=== PATIENT | male | born 1940 | race Caucasian/White ===

== ENCOUNTER 2022-08-08 10:57 | Inpatient (IN) | payer MEDICARE ==
[2022-08-08] MEDS ORDERED: methylPREDNISolone SOD SUCCI 125 MG/2 ML VIAL IV STA (11:11)
[2022-08-08] MEDS ORDERED: IPRATROPIUM-ALBUTEROL 3 ML NEB INHALATION STA (11:11)
--- NOTE | 2022-08-08 11:15 | ED ---
SOB HPI - General Chief Complaint: Shortness of Breath Stated Complaint: URI Time Seen by Provider: 08/08/22 11:05 Source: patient, family, RN notes reviewed Mode of arrival: ambulatory Limitations: no limitations - History of Present Illness Initial Comments: This is an 82-year-old male who presents to the emergency department for a cough and difficulty breathing. States that for approximately 16 days, he has been experiencing a productive cough. He is unable to lay flat at night due to this cough. Also reports associated shortness of breath. Denies any chest pain. He has no cardiac or pulmonary issues. Patient is not a current smoker and quit approximately 20 years ago. He does have an abdominal aortic aneurysm that he has been told is small and not at the point of requiring repair. Denies any sick contacts. Denies any fevers, chills, sore throat, chest pain, palpitations, abdominal pain, nausea, vomiting, diarrhea, back pain, or headaches. MD Complaint: shortness of breath, cough Onset/Timin -: days(s) Worsens With: lying flat Associated Symptoms: sputum production Treatments Prior to Arrival: none - Related Data Home Oxygen Therapy: No Home Medications Medication Instructions Recorded Confirmed Atorvastatin Calcium 40 mg PO DAILY 08/08/22 08/08/22 Cyanocobalamin (Vitamin B-12) 1,000 mcg PO DAILY 08/08/22 08/08/22 [Vitamin B-12] Esomeprazole Magnesium [NexIUM 20 mg PO DAILY 08/08/22 08/08/22 24Hr] Glucosamine/Chondr Ho A Sod [Osteo 2 tab PO DAILY 08/08/22 08/08/22 Bi-Flex Caplet] Metoprolol Tartrate [Lopressor] 50 mg PO BID 08/08/22 08/08/22 Homer-3/Dha/Epa/Fish Oil [Fish Oil 1 cap PO DAILY 08/08/22 08/08/22 1,000 mg Softgel] Pseudoephedrine/Chlorpheniramie 1 tab PO Q4-6H PRN MDD 4 TABLETS 08/08/22 08/08/22 60mg/4mg Triamterene/Hydrochlorothiazid 1 cap PO DAILY 08/08/22 08/08/22 [Triamterene-Hctz 37.5-25 mg Cp] guaiFENesin-DM 600/30MG [Mucinex 1 tab PO Q12HR PRN 08/08/22 08/08/22 Dm] lisinopriL 40 mg PO DAILY 08/08/22 08/08/22 Allergies Allergy/AdvReac Type Severity Reaction Status Date / Time No Known Allergies Allergy Verified 08/08/22 14:24 Review of Systems ROS Statement: Those systems with pertinent positive or pertinent negative responses have been documented in the HPI. ROS Other: All systems not noted in ROS Statement are negative. Past Medical History Past Medical History: Cancer, Hyperlipidemia, Hypertension, Prostate Disorder Additional Past Medical History / Comment(s): abdominal aneurysm History of Any Multi-Drug Resistant Organisms: None Reported Past Surgical History: Cholecystectomy, Prostate Surgery Additional Past Surgical History / Comment(s): colectomy Smoking Status: Former smoker Past Alcohol Use History: None Reported Past Drug Use History: None Reported General Exam Limitations: no limitations General appearance: alert, in no apparent distress Head exam: Present: atraumatic, normocephalic, normal inspection Respiratory exam: Present: wheezes, rales, decreased breath sounds Cardiovascular Exam: Present: normal rhythm, tachycardia, normal heart sounds. Absent: systolic murmur, diastolic murmur, rubs, gallop, clicks Extremities exam: Absent: pedal edema, joint swelling, calf tenderness Neurological exam: Present: alert, oriented X3, CN II-XII intact Psychiatric exam: Present: normal affect, normal mood Skin exam: Present: warm, dry, intact, normal color. Absent: rash Course Vital Signs 08/08/22 08/08/22 08/08/22 11:00 11:03 12:21 Temperature 98.3 F Pulse Rate 101 H 75 Respiratory 24 18 24 Rate Blood Pressure 162/87 142/88 O2 Sat by Pulse 85 L 96 Oximetry 08/08/22 08/08/22 12:36 12:47 Temperature Pulse Rate 78 79 Respiratory 18 20 Rate Blood Pressure O2 Sat by Pulse Oximetry Medical Decision Making - Medical Decision Making This is an 82-year-old male who presents to the emergency department for coughing and shortness of breath. Patient is hypoxic and mildly tachycardic on arrival. He was subsequently placed on oxygen via nasal cannula. Lab work reveals leukocytosis and an elevated d-dimer. COVID and influenza testing were negative. ABG is unfortunately inaccurate as the patient was wearing supplemental oxygen when this was obtained. Chest x-ray reveals right mid lung and mild bibasilar infiltrates suggestive of atelectasis or atypical pneumonia. Patient was given a DuoNeb breathing treatment, which he states helped his symptoms. Given the elevated d-dimer, CTA of the chest was obtained. This did not identify signs of a pulmonary embolus, but did reveal hilar adenopathy vs soft tissue mass. Imaging reviewed with ED attending, Dr. Andrews, who believes this may be related to a pneumonia even though that is not specifically mentioned on the CTA. Patient continues to be hypoxic and will be admitted to medicine for further management. Pneumonia protocol initiated with antibiotics in the event there is a pneumonia or other infection contributing to his symptoms. This case was discussed in detail with the attending ED physician. Presentation, findings, and treatment plan discussed in detail as well. - Lab Data Result diagrams: 08/08/22 11:57 08/08/22 11:57 Lab Results 08/08/22 08/08/22 08/08/22 Range/Units 11:57 11:57 11:57 WBC 11.2 H (3.8-10.6) k/uL RBC 4.21 L (4.30-5.90) m/uL Hgb 12.9 L (13.0-17.5) gm/dL Hct 38.0 L (39.0-53.0) % MCV 90.3 (80.0-100.0) fL MCH 30.7 (25.0-35.0) pg MCHC 34.0 (31.0-37.0) g/dL RDW 13.6 (11.5-15.5) % Plt Count 262 (150-450) k/uL MPV 8.4 Neutrophils % 79 % Lymphocytes % 7 % Monocytes % 9 % Eosinophils % 1 % Basophils % 0 % Neutrophils # 8.9 H (1.3-7.7) k/uL Lymphocytes # 0.8 L (1.0-4.8) k/uL Monocytes # 1.0 (0-1.0) k/uL Eosinophils # 0.1 (0-0.7) k/uL Basophils # 0.0 (0-0.2) k/uL PT 11.0 (9.0-12.0) sec INR 1.0 (<1.2) APTT 25.0 (22.0-30.0) sec D-Dimer 2.64 H (<0.60) mg/L FEU Sample Site ABG pH (7.35-7.45) ABG pCO2 (35-45) mmHg ABG pO2 (83-108) mmHg ABG HCO3 (21-25) mmol/L ABG Total CO2 (19-24) mmol/L ABG O2 Saturation (94-97) % ABG Base Excess mmol/L Ryan Test FiO2 % Sodium 137 (137-145) mmol/L Potassium 4.1 (3.5-5.1) mmol/L Chloride 97 L (98-107) mmol/L Carbon Dioxide 26 (22-30) mmol/L Anion Gap 14 mmol/L BUN 25 H (9-20) mg/dL Creatinine 0.99 (0.66-1.25) mg/dL Est GFR (CKD-EPI)AfAm 82 (>60 ml/min/1.73 sqM) Est GFR (CKD-EPI)NonAf 71 (>60 ml/min/1.73 sqM) Glucose 122 H (74-99) mg/dL Plasma Lactic Acid Vicente (0.7-2.0) mmol/L Calcium 9.0 (8.4-10.2) mg/dL Total Bilirubin 1.2 (0.2-1.3) mg/dL AST 33 (17-59) U/L ALT 20 (4-49) U/L Alkaline Phosphatase 64 (38-126) U/L Troponin I (0.000-0.034) ng/mL NT-Pro-B Natriuret Pep pg/mL Total Protein 7.2 (6.3-8.2) g/dL Albumin 4.1 (3.5-5.0) g/dL Coronavirus (PCR) (Not Detectd) Influenza Type A RNA (Not Detectd) Influenza Type B (PCR) (Not Detectd) 08/08/22 08/08/22 08/08/22 Range/Units 11:57 11:57 11:57 WBC (3.8-10.6) k/uL RBC (4.30-5.90) m/uL Hgb (13.0-17.5) gm/dL Hct (39.0-53.0) % MCV (80.0-100.0) fL MCH (25.0-35.0) pg MCHC (31.0-37.0) g/dL RDW (11.5-15.5) % Plt Count (150-450) k/uL MPV Neutrophils % % Lymphocytes % % Monocytes % % Eosinophils % % Basophils % % Neutrophils # (1.3-7.7) k/uL Lymphocytes # (1.0-4.8) k/uL Monocytes # (0-1.0) k/uL Eosinophils # (0-0.7) k/uL Basophils # (0-0.2) k/uL PT (9.0-12.0) sec INR (<1.2) APTT (22.0-30.0) sec D-Dimer (<0.60) mg/L FEU Sample Site ABG pH (7.35-7.45) ABG pCO2 (35-45) mmHg ABG pO2 (83-108) mmHg ABG HCO3 (21-25) mmol/L ABG Total CO2 (19-24) mmol/L ABG O2 Saturation (94-97) % ABG Base Excess mmol/L Ryan Test FiO2 % Sodium (137-145) mmol/L Potassium (3.5-5.1) mmol/L Chloride (98-107) mmol/L Carbon Dioxide (22-30) mmol/L Anion Gap mmol/L BUN (9-20) mg/dL Creatinine (0.66-1.25) mg/dL Est GFR (CKD-EPI)AfAm (>60 ml/min/1.73 sqM) Est GFR (CKD-EPI)NonAf (>60 ml/min/1.73 sqM) Glucose (74-99) mg/dL Plasma Lactic Acid Vicente 1.0 (0.7-2.0) mmol/L Calcium (8.4-10.2) mg/dL Total Bilirubin (0.2-1.3) mg/dL AST (17-59) U/L ALT (4-49) U/L Alkaline Phosphatase (38-126) U/L Troponin I 0.014 (0.000-0.034) ng/mL NT-Pro-B Natriuret Pep 210 pg/mL Total Protein (6.3-8.2) g/dL Albumin (3.5-5.0) g/dL Coronavirus (PCR) (Not Detectd) Influenza Type A RNA (Not Detectd) Influenza Type B (PCR) (Not Detectd) 08/08/22 08/08/22 08/08/22 Range/Units 11:57 11:57 12:34 WBC (3.8-10.6) k/uL RBC (4.30-5.90) m/uL Hgb (13.0-17.5) gm/dL Hct (39.0-53.0) % MCV (80.0-100.0) fL MCH (25.0-35.0) pg MCHC (31.0-37.0) g/dL RDW (11.5-15.5) % Plt Count (150-450) k/uL MPV Neutrophils % % Lymphocytes % % Monocytes % % Eosinophils % % Basophils % % Neutrophils # (1.3-7.7) k/uL Lymphocytes # (1.0-4.8) k/uL Monocytes # (0-1.0) k/uL Eosinophils # (0-0.7) k/uL Basophils # (0-0.2) k/uL PT (9.0-12.0) sec INR (<1.2) APTT (22.0-30.0) sec D-Dimer (<0.60) mg/L FEU Sample Site r rad ABG pH 7.39 (7.35-7.45) ABG pCO2 47 H (35-45) mmHg ABG pO2 119 H (83-108) mmHg ABG HCO3 29 H (21-25) mmol/L ABG Total CO2 30 H (19-24) mmol/L ABG O2 Saturation 98.0 H (94-97) % ABG Base Excess 3.7 mmol/L Ryan Test Yes FiO2 40 % Sodium (137-145) mmol/L Potassium (3.5-5.1) mmol/L Chloride (98-107) mmol/L Carbon Dioxide (22-30) mmol/L Anion Gap mmol/L BUN (9-20) mg/dL Creatinine (0.66-1.25) mg/dL Est GFR (CKD-EPI)AfAm (>60 ml/min/1.73 sqM) Est GFR (CKD-EPI)NonAf (>60 ml/min/1.73 sqM) Glucose (74-99) mg/dL Plasma Lactic Acid Vicente (0.7-2.0) mmol/L Calcium (8.4-10.2) mg/dL Total Bilirubin (0.2-1.3) mg/dL AST (17-59) U/L ALT (4-49) U/L Alkaline Phosphatase (38-126) U/L Troponin I (0.000-0.034) ng/mL NT-Pro-B Natriuret Pep pg/mL Total Protein (6.3-8.2) g/dL Albumin (3.5-5.0) g/dL Coronavirus (PCR) Not Detected (Not Detectd) Influenza Type A RNA Not Detected (Not Detectd) Influenza Type B (PCR) Not Detected (Not Detectd) - EKG Data EKG Comments: Sinus rhythm with occasional supraventricular premature complexes. Normal axis. Ventricular rate 82 bpm, NH interval 165 ms, QRS duration 108 ms, QTC 409 ms. - Radiology Data Radiology results: report reviewed, image reviewed Disposition Clinical Impression: Hypoxia Disposition: ADMITTED IP TO THIS HOSP
[2022-08-08 12:22] LABS: Basophils % (A) 0 %; Eosinophils # (A) 0.1 k/uL (0-0.7); Eosinophils % (A) 1 %; HGB 12.9 gm/dL (13.0-17.5); Lymphocytes # (A) 0.8 k/uL (1.0-4.8); Lymphocytes % (A) 7 %; MCH 30.7 pg (25.0-35.0); MCV 90.3 fL (80.0-100.0); Mean Platelet Volume 8.4; Monocytes % (A) 9 %; Neutrophils # (A) 8.9 k/uL (1.3-7.7); Neutrophils % (A) 79 %; Platelet Count 262 k/uL (150-450); RBC 4.21 m/uL (4.30-5.90); RDW 13.6 % (11.5-15.5); WBC 11.2 k/uL (3.8-10.6)
--- NOTE | 2022-08-08 12:25 | XR ---
EXAMINATION TYPE: XR chest 2V DATE OF EXAM: 08/08/2022 COMPARISON: 11/19/2011 INDICATION: Difficulty in breathing, cough x2 weeks TECHNIQUE: Frontal and lateral views of the chest are obtained. FINDINGS: The heart size is normal. The pulmonary vasculature is normal. There is some patchy infiltrate through the right mid lung. Lower lobe infiltrates may be present gre ater on the right.. IMPRESSION: 1. Right mid lung and mild bibasilar infiltrates. Correlate for atelectasis. Pneumonia should be cons idered. Consider atypical pneumonia. Follow-up is recommended.
[2022-08-08 12:32] LABS: Albumin 4.1 g/dL (3.5-5.0); Total Bilirubin 1.2 mg/dL (0.2-1.3); Total Protein 7.2 g/dL (6.3-8.2)
[2022-08-08 12:35] LABS: Potassium 4.1 mmol/L (3.5-5.1)
[2022-08-08 12:41] LABS: ABG Base Excess 3.7 mmol/L; ABG HCO3 29 mmol/L (21-25); ABG PCO2 47 mmHg (35-45); ABG PH 7.39 (7.35-7.45); ABG PO2 119 mmHg (83-108); ABG TCO2 30 mmol/L (19-24); Allen Test Performed? Yes
--- NOTE | 2022-08-08 14:24 | CT ---
CT CHEST FOR PULMONARY EMBOLISM. EXAMINATION TYPE: CT chest angio for PE DATE OF EXAM: 08/08/2022 INDICATION: Cough and elevated d-dimer CT DLP: 682 mGycm, Automated exposure control for dose reduction was used. CONTRAST: Patient injected with 100 mL of Isovue 370. COMPARISON: None TECHNIQUE: CT of the chest is performed on a spiral scan at 2 mm thick sections. Study is performed with intravenous contrast timed for evaluation for pulmonary embolism. This will limit additional po rtions of the evaluation. 3-D MIP images reconstructed by the technologist are reviewed on the compu ter in the coronal and sagittal planes. FINDINGS: No persistent filling defects are evident to suggest an acute pulmonary embolism. No enlarged mediastinal adenopathy is evident. There appears to be some right hilar adenopathy or sof t tissue mass in the infrahilar region. This measures approximately 2 x 2.2 cm. The ascending aorta diameter at the level of the main pulmonary artery is 4.2 cm. The main pulmonary artery diameter at the bifurcation is 3.9 cm. There is increased lung markings in the periphery of the right mid lung field. These are nonspecific. Correlate for atelectasis or pulmonary vascular prominence. There is mild increased lung markings in the posterior right lung base. Correlate for atelectasis. Limited CT sections are obtained through the upper abdomen. There is a 7.7 cm cyst at the superior po le left kidney. IMPRESSIONS: 1. No Acute pulmonary embolism. 2. Hilar adenopathy or soft tissue mass measuring approximately 2.2 cm. Consider additional workup fo r neoplasm. 3. Ascending thoracic aortic aneurysm 4.2 cm AP dimension.
[2022-08-08] MEDS ORDERED: PNEUMONIA PROTOCOL UTILIZED 1 EACH MISC PO PRN (14:43)
[2022-08-08] MEDS ORDERED: ACETAMINOPHEN TAB 325 MG TAB PO PRN (14:58)
[2022-08-08] MEDS ORDERED: NALOXONE 0.4 MG/ML 1 ML VIAL IV PRN (14:58)
[2022-08-08] MEDS ORDERED: KETOROLAC 15 MG/ML 1 ML VIAL IVP PRN (14:58)
[2022-08-08] MEDS: AZITHROMYCIN 500 MG TAB PO SCH (18:03)
--- NOTE | 2022-08-08 18:38 | P.HPIM ---
History of Present Illness H&P Date: 08/08/22 Patient is an 82-year-old male with hypertension, dyslipidemia, abdominal aortic aneurysm presented to the ER with complaints of cough and shortness of breath 16 days. On arrival he was hypoxic at 85% on room air. Laboratory analysis showed white blood cell count 11.2, hemoglobin 12.9, d-dimer 2.64, and BUN 25. COVID-19 and influenza testing were negative. He underwent a chest x-ray which showed right mid lung and mid bibasilar infiltrates. CTA of the chest was completed and did not show any evidence of pulmonary embolism. However hilar adenopathy or soft tissue mass was demonstrated. He was found having an ascending thoracic aortic aneurysm of 4.2 cm. In the ER he was given a dose of Solu-Medrol, bronchodilators, Rocephin, and Zithromax. Arrangement were made for admission. Patient seen and examined at bedside. He has been sick for 16 days started with sore throat and difficulty swallowing that lasted 9 days and went away and then he started with cough. Unable to lay flat due to coughing. Cough has been slantly productive or yellow phlegm. He was coughing so hard yesterdy that he felt that he would vomit. No fevers, + runny nose, + SOB that is worse when walking, + horseness had loss of vocie for a few days. No recent sick contact or covid exposures. Quit smoking at age 65 with 50 pack year hx, no COPD. Pertinent positives and negatives as discussed in HPI, a complete review of systems was performed and all other systems are negative. Vital signs reviewed General: nontoxic, no distress, appears at stated age Derm: warm, dry Head: atraumatic, normocephalic, symmetric Eyes: EOMI, no lid lag, anicteric sclera, pupils equal round reactive to light ENT: Nose and ears atraumatic, no thrush, + pharyngeal erythema no exudate Neck: No thyromegaly, no cervical lymphadenopathy, trachea midline, supple Mouth: no lip lesion, mucus membranes moist Cardiovascular: S1S2 reg, no murmur, positive posterior tibial pulse bilateral, no edema, capillary refill less than 2 seconds Lungs: + ronchi and wheeze bilateral with 3 word conversational dyspnea, no wheeze, no accessory muscle use Abdominal: soft, nontender to palpation, no guarding, no appreciable organomegaly, normal bowel sounds Ext: no gross muscle atrophy, muscle strength 5 out of 5 in all 4 extremities, no contractures Neuro: CN II-XII grossly intact, light touch intact all 4 extremities, finger to nose within normal limits, Psych: Alert, oriented, appropriate affect Assessment/Plan: Bronchitis Acute hypoxic respiratory failure Probable COPD - Rocephin and Zithromax - Steroid burst and taper - Check sputum culture - Check pro calcitonin - Check COVID-19 PCR - Wean O2 as able -Consult pulmonary -Patient will likely need repeat imaging after course of antibiotics -He does have a history of prostate cancer treated with radiation beads as well as a significant smoking history. Aortic aneurysm -Patient will like to follow-up with his as to whether he has a history of an abdominal or thoracic aortic aneurysm -We discussed that he will need close outpatient follow-up with his primary care physician to ensure that this is not growing or changing HTN -Resume home lisinopril, metoprolol, triamterene hydrochlorothiazide -Follow blood pressures HLD -Statin The patient is admitted with an anticipated greater than 2 midnight stay for evaluation of Brochitis with acute respiratory failure Surrogate decision-maker: CODE STATUS:Full, no prolonged mechanical ventilation DVT prophylaxis: Lovenox Discussed with: Patient, nursing Anticipated discharge date: in 2-[address]: home A total of [65] minutes was spent on the care of this complex patient more than 50% of the time was spent in counseling and care coordination. Past Medical History Past Medical History: Cancer, Hyperlipidemia, Hypertension, Prostate Disorder Additional Past Medical History / Comment(s): abdominal aneurysm History of Any Multi-Drug Resistant Organisms: None Reported Past Surgical History: Cholecystectomy, Prostate Surgery Additional Past Surgical History / Comment(s): colectomy Smoking Status: Former smoker Past Alcohol Use History: None Reported Past Drug Use History: None Reported - Past Family History family Additional Family Medical History / Comment(s): no family hx of cancer Medications and Allergies Home Medications Medication Instructions Recorded Confirmed Type Atorvastatin Calcium 40 mg PO DAILY 08/08/22 08/08/22 History Cyanocobalamin (Vitamin B-12) 1,000 mcg PO DAILY 08/08/22 08/08/22 History [Vitamin B-12] Esomeprazole Magnesium [NexIUM 20 mg PO DAILY 08/08/22 08/08/22 History 24Hr] Glucosamine/Chondr Ho A Sod [Osteo 2 tab PO DAILY 08/08/22 08/08/22 History Bi-Flex Caplet] Metoprolol Tartrate [Lopressor] 50 mg PO BID 08/08/22 08/08/22 History Nelson-3/Dha/Epa/Fish Oil [Fish Oil 1 cap PO DAILY 08/08/22 08/08/22 History 1,000 mg Softgel] Pseudoephedrine/Chlorpheniramie 1 tab PO Q4-6H PRN MDD 4 TABLETS 08/08/22 08/08/22 History 60mg/4mg Triamterene/Hydrochlorothiazid 1 cap PO DAILY 08/08/22 08/08/22 History [Triamterene-Hctz 37.5-25 mg Cp] guaiFENesin-DM 600/30MG [Mucinex 1 tab PO Q12HR PRN 08/08/22 08/08/22 History Dm] lisinopriL 40 mg PO DAILY 08/08/22 08/08/22 History Allergies Allergy/AdvReac Type Severity Reaction Status Date / Time No Known Allergies Allergy Verified 08/08/22 14:24 Physical Exam Osteopathic Statement: *. No significant issues noted on an osteopathic structural exam other than those noted in the History and Physical/Consult. Vitals: Vital Signs Temp Pulse Pulse Resp BP BP Pulse Ox 08/08/22 18:19 97.9 F 08/08/22 18:10 87 16 159/78 95 08/08/22 17:00 88 18 134/78 98 08/08/22 12:47 79 20 08/08/22 12:36 78 18 08/08/22 12:21 75 24 142/88 96 08/08/22 11:03 18 08/08/22 11:00 98.3 F 101 H 24 162/87 85 L Intake and Output 08/08/22 08/08/22 08/08/22 06:59 14:59 22:59 Other: Weight 108.862 kg 108.862 kg Results CBC & Chem 7: 08/08/22 11:57 08/08/22 11:57 Labs: Abnormal Lab Results - Last 24 Hours (Table) 08/08/22 08/08/22 08/08/22 Range/Units 11:57 11:57 11:57 WBC 11.2 H (3.8-10.6) k/uL RBC 4.21 L (4.30-5.90) m/uL Hgb 12.9 L (13.0-17.5) gm/dL Hct 38.0 L (39.0-53.0) % Neutrophils # 8.9 H (1.3-7.7) k/uL Lymphocytes # 0.8 L (1.0-4.8) k/uL D-Dimer 2.64 H (<0.60) mg/L FEU ABG pCO2 (35-45) mmHg ABG pO2 (83-108) mmHg ABG HCO3 (21-25) mmol/L ABG Total CO2 (19-24) mmol/L ABG O2 Saturation (94-97) % Chloride 97 L (98-107) mmol/L BUN 25 H (9-20) mg/dL Glucose 122 H (74-99) mg/dL 08/08/22 Range/Units 12:34 WBC (3.8-10.6) k/uL RBC (4.30-5.90) m/uL Hgb (13.0-17.5) gm/dL Hct (39.0-53.0) % Neutrophils # (1.3-7.7) k/uL Lymphocytes # (1.0-4.8) k/uL D-Dimer (<0.60) mg/L FEU ABG pCO2 47 H (35-45) mmHg ABG pO2 119 H (83-108) mmHg ABG HCO3 29 H (21-25) mmol/L ABG Total CO2 30 H (19-24) mmol/L ABG O2 Saturation 98.0 H (94-97) % Chloride (98-107) mmol/L BUN (9-20) mg/dL Glucose (74-99) mg/dL Thrombosis Risk Factor Assmnt - DVT/VTE Prophylaxis DVT/VTE Prophylaxis: Pharmacologic Prophylaxis ordered - Choose All That Apply Each Factor Represents 1 point: Serious lung disease incl. pneumonia (< 1month) Each Risk Factor Represents 3 Points: Age 75 years or older Thrombosis Risk Factor Assessment Total Risk Factor Score: 4 Thrombosis Risk Factor Assessment Level: Moderate Risk
[2022-08-08] MEDS ORDERED: ONDANSETRON 4 MG/2 ML VIAL IVP PRN (19:02)
[2022-08-08] MEDS ORDERED: MELATONIN 3 MG TABLET PO PRN (19:02)
[2022-08-08] MEDS ORDERED: ALBUTEROL NEBULIZED 2.5 MG/3 ML INHALATION PRN (19:02)
[2022-08-08] MEDS ORDERED: bisacodyL 5 MG TABLET.DR PO PRN (19:02)
[2022-08-08] MEDS: IPRATROPIUM-ALBUTEROL 3 ML NEB INHALATION SCH (20:29)
[2022-08-08] MEDS: guaiFENesin 600 MG TABLET.ER PO SCH (20:33)
[2022-08-08] MEDS: METOPROLOL TARTRATE 50 MG TAB PO SCH (20:33)
[2022-08-08] MEDS: BENZONATATE 100 MG CAP PO SCH (20:33)
[2022-08-08] MEDS: SODIUM CHLORIDE 0.9% 1,000 ML IV SCH (20:35)
[2022-08-08] MEDS: methylPREDNISolone SOD SUCCI 125 MG/2 ML VIAL IV SCH (23:43)
[2022-08-09] MEDS: methylPREDNISolone SOD SUCCI 125 MG/2 ML VIAL IV SCH ×4 (05:57→23:34)
[2022-08-09] MEDS: ATORVASTATIN 40 MG TAB PO SCH (07:27)
[2022-08-09] MEDS: PANTOPRAZOLE 40 MG TABLET PO SCH (07:28)
[2022-08-09] MEDS: CYANOCOBALAMIN 500 MCG TAB PO SCH (07:28)
[2022-08-09] MEDS: guaiFENesin 600 MG TABLET.ER PO SCH (07:28)
[2022-08-09] MEDS: METOPROLOL TARTRATE 50 MG TAB PO SCH ×2 (07:28→20:35)
[2022-08-09] MEDS: BENZONATATE 100 MG CAP PO SCH (07:28)
[2022-08-09] MEDS: lisinopriL 20 MG TAB PO SCH (07:28)
[2022-08-09] MEDS: ENOXAPARIN 40 MG/0.4 ML SYRINGE SQ SCH (07:28)
[2022-08-09] MEDS: TRIAMTERENE-HCTZ 37.5-25MG 1 EACH CAP PO SCH (07:29)
[2022-08-09] MEDS: SODIUM CHLORIDE 0.9% 1,000 ML IV SCH ×2 (07:34→23:59)
[2022-08-09] MEDS ORDERED: NON FORMULARY DRUG (Esomeprazole Magnesium [Nexium 24hr] 20 MG Tablet) PO SCH (09:00)
[2022-08-09] MEDS ORDERED: AZITHROMYCIN 500 MG TAB PO SCH (09:00)
[2022-08-09] MEDS: IPRATROPIUM-ALBUTEROL 3 ML NEB INHALATION SCH ×4 (09:05→20:54)
[2022-08-09] MEDS ORDERED: guaiFENesin-Coden 100-10MG/5ML 10 ML CUP PO PRN (09:53)
[2022-08-09 10:36] LABS: HGB 12.6 g/dL (13.0-17.0); MCH 29.6 pg (27.0-32.0); MCHC 31.5 g/dL (32.0-37.0); MCV 93.9 fL (80.0-97.0); Mean Platelet Volume 10.3 fL (9.5-12.2); NRBC Per 100 WBC 0 /100 WBCS (0.0-0.0); Platelet Count 275 X 10*3/uL (140-440); RBC 4.26 X 10*6/uL (4.40-5.60); RDW 13.4 % (11.5-14.5); WBC 9.97 X 10*3/uL (4.50-10.00)
[2022-08-09 10:53] LABS: African American GFR (CKD) 80.9 (60.0-200.0); Anion Gap 11.8 mmol/L (10.00-18.00); BUN/Creat Ratio 22.5 Ratio (12.00-20.00); Blood Urea Nitrogen 22.5 mg/dL (9.0-27.0); Calcium 8.9 mg/dL (8.7-10.3); Carbon Dioxide 27.2 mmol/L (20.0-27.5); Non-African American GFR(CKD) 69.8 (60.0-200.0); Potassium 4.4 mmol/L (3.5-5.5)
--- NOTE | 2022-08-09 13:39 | P.CNPUL ---
History of Present Illness Consult date: 08/09/22 Requesting physician: Chelsea Ahumada Reason for consult: dyspnea, cough, COPD, hypoxemia, pneumonia, abnormal CXR/CT Chief complaint: Shortness of breath and cough. History of present illness: Pulmonary consult dated 08/09/2022. 82-year-old male presents to the emergency department on August 08, complaining of shortness of breath, and a severe cough. The patient states that he has not been feeling well for about 16 days. The cough is productive of occasional yellow/downs phlegm. He denies any fever or chills. He states that his cough is worse when he lays flat. He denies any chest pain or chest discomfort. He is a long-standing history of severe and significant tobacco use, nearly 50 years. He denied any fever or chills. He denied abdominal pain, or nausea, vomiting, or diarrhea. He denies all genitourinary complaints as well. His x-rays, and his CAT scans are reviewed. White count is 9.97 hemoglobin 12.6, hematocrit 40, and platelet count was 275,000. D-dimer was 2.64. Blood gases show pO2 of 119, pCO2 47, and pH is 7.39. Sodium, potassium, chloride, CO2, anion gap, BUN, and creatinine are all normal. Pro-calcitonin level is low at 0.14. Testing for influenza A, and influenza B, are negative. Testing for coronavirus 2 is negative. The patient's chest x-ray shows right midlung and mild bibasilar infiltrates, and or atelectasis. The patient CT angiogram was negative for pulmonary embolism. There is hilar adenopathy or soft tissue mass, measuring 2.2 cm. This could be reactive adenopathy, or something more ominous. The patient is on updrafts with albuterol sulfate and ipratropium bromide, antibiotics in the form of azithromycin and ceftriaxone, Solu-Medrol, and Symbicort. Review of Systems REVIEW OF SYSTEMS: CONSTITUTIONAL: [Negative.] NEUROLOGIC: [ Negative.] HEENT: [ Negative.] CARDIAC: [Negative.] PULMONARY: Shortness of breath, harsh cough, phlegm production. GI: [Negative.] : [Negative.] RHEUMATOLOGIC: [ Negative.] IMMUNOLOGIC: [ Negative.] ENDOCRINE: [Negative. ] DERMATOLOGIC: [Negative.] Past Medical History Past Medical History: Cancer, Hyperlipidemia, Hypertension, Prostate Disorder Additional Past Medical History / Comment(s): abdominal aneurysm History of Any Multi-Drug Resistant Organisms: None Reported Past Surgical History: Cholecystectomy, Prostate Surgery Additional Past Surgical History / Comment(s): colectomy Smoking Status: Former smoker Past Alcohol Use History: None Reported Past Drug Use History: None Reported - Past Family History family Additional Family Medical History / Comment(s): no family hx of cancer Medications and Allergies Home Medications Medication Instructions Recorded Confirmed Type Atorvastatin Calcium 40 mg PO DAILY 08/08/22 08/08/22 History Cyanocobalamin (Vitamin B-12) 1,000 mcg PO DAILY 08/08/22 08/08/22 History [Vitamin B-12] Esomeprazole Magnesium [NexIUM 20 mg PO DAILY 08/08/22 08/08/22 History 24Hr] Glucosamine/Chondr Ho A Sod [Osteo 2 tab PO DAILY 08/08/22 08/08/22 History Bi-Flex Caplet] Metoprolol Tartrate [Lopressor] 50 mg PO BID 08/08/22 08/08/22 History [place]-3/Dha/Epa/Fish Oil [Fish Oil 1 cap PO DAILY 08/08/22 08/08/22 History 1,000 mg Softgel] Pseudoephedrine/Chlorpheniramie 1 tab PO Q4-6H PRN MDD 4 TABLETS 08/08/22 08/08/22 History 60mg/4mg Triamterene/Hydrochlorothiazid 1 cap PO DAILY 08/08/22 08/08/22 History [Triamterene-Hctz 37.5-25 mg Cp] guaiFENesin-DM 600/30MG [Mucinex 1 tab PO Q12HR PRN 08/08/22 08/08/22 History Dm] lisinopriL 40 mg PO DAILY 08/08/22 08/08/22 History Allergies Allergy/AdvReac Type Severity Reaction Status Date / Time No Known Allergies Allergy Verified 08/08/22 14:24 Physical Exam Osteopathic Statement: *. No significant issues noted on an osteopathic structural exam other than those noted in the History and Physical/Consult. Vitals: Vital Signs Temp Pulse Pulse Resp BP BP Pulse Ox 08/09/22 12:17 82 08/09/22 12:05 82 08/09/22 09:15 84 08/09/22 09:05 84 08/09/22 08:54 16 08/09/22 08:00 97.5 F L 85 16 201/94 97 08/09/22 02:00 97.6 F 73 18 162/88 97 08/08/22 20:41 90 08/08/22 20:32 86 08/08/22 20:00 97.5 F L 65 16 164/87 96 08/08/22 18:19 97.9 F 08/08/22 18:10 87 16 159/78 95 08/08/22 17:00 88 18 134/78 98 Intake and Output 08/08/22 08/09/22 08/09/22 22:59 06:59 14:59 Intake Total 1155 Balance 1155 Intake: Intake, IV Titration 675 Amount Sodium Chloride 0.9% 1, 675 000 ml @ 75 mls/hr IV . [id number] SO[facility] Rx#:[id number] Oral 480 Other: # Voids 2 Weight 108.862 kg No acute distress, oriented 3. The patient is currently on 4 L of oxygen. His cough is harsh, very congested, and wet sounding. HEENT examination is grossly unremarkable. Neck supple. Full range of motion. No adenopathy thyromegaly or neck vein distention. Cardiovascular examination reveals regular rhythm rate. S1-S2 normal. No S3 or S4. No discernible murmur noted. Heart sounds are distant. Heart rate 82 bpm. Lungs reveal bilateral coarse inspiratory and expiratory rhonchi and wheezes. Breath sounds are equal bilaterally. No crackles. He coughs on deep inspiration. Saturations are 97%. Abdomen soft bowel sounds are heard. No masses or tenderness. Extremities are intact. No cyanosis clubbing or edema. Skin is without rash or lesion. Neurologic examination is brief but nonfocal. Results - Laboratory Findings CBC and BMP: 08/09/22 07:04 08/09/22 07:04 ABG ABG pH 7.39 (7.35-7.45) 08/08/22 12:34 ABG pCO2 47 mmHg (35-45) H 08/08/22 12:34 ABG pO2 119 mmHg (83-108) H 08/08/22 12:34 ABG O2 Saturation 98.0 % (94-97) H 08/08/22 12:34 PT/INR, D-dimer PT 11.0 sec (9.0-12.0) 08/08/22 11:57 INR 1.0 (<1.2) 08/08/22 11:57 D-Dimer 2.64 mg/L FEU (<0.60) H 08/08/22 11:57 Abnormal lab findings: Abnormal Labs 08/08/22 08/08/22 08/08/22 11:57 11:57 11:57 WBC 11.2 H RBC 4.21 L Hgb 12.9 L Hct 38.0 L MCHC Neutrophils # 8.9 H Lymphocytes # 0.8 L D-Dimer 2.64 H ABG pCO2 ABG pO2 ABG HCO3 ABG Total CO2 ABG O2 Saturation Chloride 97 L BUN 25 H BUN/Creatinine Ratio Glucose 122 H Procalcitonin 08/08/22 08/08/22 08/09/22 11:57 12:34 07:04 WBC RBC 4.26 L Hgb 12.6 L Hct MCHC 31.5 L Neutrophils # Lymphocytes # D-Dimer ABG pCO2 47 H ABG pO2 119 H ABG HCO3 29 H ABG Total CO2 30 H ABG O2 Saturation 98.0 H Chloride BUN BUN/Creatinine Ratio Glucose Procalcitonin 0.14 H 08/09/22 07:04 WBC RBC Hgb Hct MCHC Neutrophils # Lymphocytes # D-Dimer ABG pCO2 ABG pO2 ABG HCO3 ABG Total CO2 ABG O2 Saturation Chloride BUN BUN/Creatinine Ratio 22.50 H Glucose 163 H Procalcitonin - Diagnostic Findings Chest x-ray: image reviewed CT scan - chest: image reviewed Assessment and Plan Assessment: COPD exacerbation, complicated by possible right-sided pneumonia, and/or right hilar mass/adenopathy. History of 48 years of tobacco use. History of hypertension. History of hyperlipidemia. History of abdominal aneurysm. Prior history of colectomy. Plan: Plan dated 08/09/2022. The patient is on albuterol sulfate and ipratropium bromide, 4 times a day and when necessary. In addition, the patient is receiving Symbicort, 160/4.5, 2 puffs twice a day, and Solu-Medrol, every 6 hours. The patient's on good antibiotics in the form of azithromycin and Rocephin. The patient's also receiving Tessalon Perles for his cough, and codeine containing cough syrup. The patient is agreeable to undergo a bronchoscopy, with airway examination, therapeutic lavage, and BAL tomorrow. We will continue to follow make recommendations along the way. Prognosis is certainly guarded. X-rays, labs, and medications are all reviewed. Time with Patient: Greater than 30
--- NOTE | 2022-08-09 14:10 | P.PN ---
Subjective Progress Note Date: 08/09/22 Patient continues to report wheezing and dyspnea. Also reports cough, difficulty with production, but feels congested. Gen: awake, alert HEENT: normocephalic, atraumatic, good hearing acuity, moist mucous membranes Resp: Impaired air exchange, symmetric chest expansion, diffuse across all lung alejandro CVS: good distal perfusion x 4, GI: soft, NTTP, ND : no SPT, no CVAT, araujo catheter not present MSK: no pitting edema, no clubbing Neuro: non-focal, moving all extremities Psych: cooperative, euthymic mood Assessment/plan: Bronchitis Acute hypoxic respiratory failure Probable COPD exacerbation - Rocephin and Zithromax - Steroid burst and taper - Check sputum culture - Check pro calcitonin = 0.14 - Check COVID-19 PCR - Wean O2 as able -Consult pulmonary -plan for bronchoscopy with BAL on 08/10 -Patient will likely need repeat imaging after course of antibiotics -He does have a history of prostate cancer treated with radiation beads as well as a significant smoking history. Aortic aneurysm -Patient will like to follow-up with his as to whether he has a history of an abdominal or thoracic aortic aneurysm -We discussed that he will need close outpatient follow-up with his primary care physician to ensure that this is not growing or changing HTN -Resume home lisinopril, metoprolol, triamterene hydrochlorothiazide -Follow blood pressures HLD -Statin Surrogate decision-maker: CODE STATUS:Full, no prolonged mechanical ventilation DVT prophylaxis: Lovenox Anticipated discharge date: in 2-[address]: home Objective - Vital Signs Vital signs: Vital Signs Temp 97.5 F L 08/09/22 08:00 Pulse 82 08/09/22 12:17 Resp 16 08/09/22 08:54 BP 201/94 08/09/22 08:00 Pulse Ox 97 08/09/22 08:00 FiO2 Intake & Output 08/08/22 08/09/22 08/09/22 18:59 06:59 18:59 Intake Total 1155 250 Balance 1155 250 Weight 108.862 kg Intake: Intake, IV Titration 675 Amount Sodium Chloride 0.9% 1, 675 000 ml @ 75 mls/hr IV . [id number] SOFI Rx#:[id number] Oral 480 250 Other: # Voids 2 - Labs CBC & Chem 7: 08/09/22 07:04 08/09/22 07:04 Labs: Abnormal Lab Results - Last 24 Hours (Table) 08/08/22 08/09/22 08/09/22 Range/Units 11:57 07:04 07:04 RBC 4.26 L (4.40-5.60) X 10*6/uL Hgb 12.6 L (13.0-17.0) g/dL MCHC 31.5 L (32.0-37.0) g/dL BUN/Creatinine Ratio 22.50 H (12.00-20.00) Ratio Glucose 163 H (70-110) mg/dL Procalcitonin 0.14 H (0.02-0.09) ng/mL
[2022-08-09] MEDS ORDERED: BENZONATATE 100 MG CAP PO SCH (16:00)
[2022-08-09] MEDS: AZITHROMYCIN 500 MG TAB PO SCH (17:36)
[2022-08-09] MEDS: guaiFENesin-DM 100-10MG/5ML 10 ML CUP PO PRN (20:35)
[2022-08-09] MEDS: SYMBICORT 160-4.5 MCG INHALER INHALATION SCH (20:55)
[2022-08-09] MEDS: ACETYLCYSTEINE 800 MG/4 ML VIAL INHALATION SCH (20:55)
[2022-08-10] MEDS: guaiFENesin-DM 100-10MG/5ML 10 ML CUP PO PRN (03:53)
[2022-08-10] MEDS: methylPREDNISolone SOD SUCCI 125 MG/2 ML VIAL IV SCH ×4 (05:45→23:31)
[2022-08-10] MEDS: METOPROLOL TARTRATE 50 MG TAB PO SCH ×2 (07:16→20:44)
[2022-08-10] MEDS: PANTOPRAZOLE 40 MG TABLET PO SCH (07:16)
[2022-08-10] MEDS: ATORVASTATIN 40 MG TAB PO SCH (07:16)
[2022-08-10] MEDS: lisinopriL 20 MG TAB PO SCH (07:16)
[2022-08-10] MEDS: CYANOCOBALAMIN 500 MCG TAB PO SCH (07:16)
[2022-08-10] MEDS: ENOXAPARIN 40 MG/0.4 ML SYRINGE SQ SCH ×2 (07:16→09:05)
[2022-08-10] MEDS: TRIAMTERENE-HCTZ 37.5-25MG 1 EACH CAP PO SCH (07:17)
[2022-08-10] MEDS: SYMBICORT 160-4.5 MCG INHALER INHALATION SCH ×2 (07:44→20:51)
[2022-08-10] MEDS: ACETYLCYSTEINE 800 MG/4 ML VIAL INHALATION SCH ×3 (07:44→20:51)
[2022-08-10] MEDS: IPRATROPIUM-ALBUTEROL 3 ML NEB INHALATION SCH ×4 (07:44→20:49)
[2022-08-10 08:52] LABS: Basophils # (A) 0.05 X 10*3/uL (0.00-0.10); Basophils % (A) 0.3 %; Eosinophils # (A) 0 X 10*3/uL (0.04-0.35); Eosinophils % (A) 0 %; HCT 37.3 % (39.6-50.0); Immature Grans, Automated 0.9 %; Lymphocytes # (A) 0.81 X 10*3/uL (0.90-5.00); Lymphocytes % (A) 4.7 %; MCH 30.6 pg (27.0-32.0); MCHC 32.2 g/dL (32.0-37.0); MCV 95.2 fL (80.0-97.0); Mean Platelet Volume 10.8 fL (9.5-12.2); Monocytes # (A) 0.76 X 10*3/uL (0.20-1.00); Monocytes % (A) 4.4 %; NRBC Per 100 WBC 0 /100 WBCS (0.0-0.0); Neutrophils # (A) 15.34 X 10*3/uL (1.80-7.70); Neutrophils % (A) 89.7 %; Platelet Count 312 X 10*3/uL (140-440); RBC 3.92 X 10*6/uL (4.40-5.60); RDW 13.5 % (11.5-14.5); WBC 17.11 X 10*3/uL (4.50-10.00)
[2022-08-10 09:10] LABS: Magnesium 2.4 mg/dL (1.5-2.4)
[2022-08-10 09:20] LABS: African American GFR (CKD) 72.1 (60.0-200.0); Anion Gap 10.8 mmol/L (10.00-18.00); BUN/Creat Ratio 24.45 Ratio (12.00-20.00); Blood Urea Nitrogen 26.9 mg/dL (9.0-27.0); Calcium 9.3 mg/dL (8.7-10.3); Carbon Dioxide 30.2 mmol/L (20.0-27.5); Non-African American GFR(CKD) 62.2 (60.0-200.0); Potassium 5.4 mmol/L (3.5-5.5)
[2022-08-10] MEDS: SODIUM CHLORIDE 0.9% 1,000 ML IV SCH (12:18)
--- NOTE | 2022-08-10 12:52 | P.PN ---
Subjective Progress Note Date: 08/10/22 82-year-old male presents to the emergency department on August 08, complaining of shortness of breath, and a severe cough. The patient states that he has not been feeling well for about 16 days. The cough is productive of occasional yellow/downs phlegm. He denies any fever or chills. He states that his cough is worse when he lays flat. He denies any chest pain or chest discomfort. He is a long-standing history of severe and significant tobacco use, nearly 50 years. He denied any fever or chills. He denied abdominal pain, or nausea, vomiting, or diarrhea. He denies all genitourinary complaints as well. His x-rays, and his CAT scans are reviewed. White count is 9.97 hemoglobin 12.6, hematocrit 40, and platelet count was 275,000. D-dimer was 2.64. Blood gases show pO2 of 119, pCO2 47, and pH is 7.39. Sodium, potassium, chloride, CO2, anion gap, BUN, and creatinine are all normal. Pro-calcitonin level is low at 0.14. Testing for influenza A, and influenza B, are negative. Testing for coronavirus 2 is negative. The patient's chest x-ray shows right midlung and mild bibasilar infiltrates, and or atelectasis. The patient CT angiogram was negative for pulmonary embolism. There is hilar adenopathy or soft tissue mass, measuring 2.2 cm. This could be reactive adenopathy, or something more ominous. The patient is on updrafts with albuterol sulfate and ipratropium bromide, antibiotics in the form of azithromycin and ceftriaxone, Solu-Medrol, and Symbicort. The patient is seen today 08/10/2022 in follow-up on the regular medical floor. He is doing a bit better today. Less cough and congestion. Left shortness of breath. Still not quite back to his baseline. Still requiring 3 L nasal cannula to maintain O2 saturations in the 90s. He's been afebrile. Hemodynami rosanna stable. Blood cultures reveal no growth. Sputum culture pending. White count 17.1. Hemoglobin 12.0. Sodium 142. Potassium 5.4. BUN 27. Creatinine 1.1. Glucose 192. Continued on Symbicort, DuoNeb inhalations, IV Solu-Medrol. Antibiotics in the form of ceftriaxone. Lovenox for DVT prophylaxis. Objective - Vital Signs Vital signs: Vital Signs Temp 97.8 F 08/10/22 08:00 Pulse 88 08/10/22 11:15 Resp 16 08/10/22 08:00 BP 167/79 08/10/22 08:00 Pulse Ox 98 08/10/22 08:00 FiO2 Intake & Output 08/09/22 08/10/22 08/10/22 18:59 06:59 18:59 Intake Total 550 900 Balance 550 900 Intake: Intake, IV Titration 900 Amount Sodium Chloride 0.9% 1, 900 000 ml @ 75 mls/hr IV . [id number] SOFI Rx#:[id number] Oral 550 Other: # Voids 2 3 - Exam GENERAL EXAM: Alert, very pleasant 82-year-old gentleman, on 3 L nasal cannula, comfortable in no apparent distress. HEAD: Normocephalic. EYES: Normal reaction of pupils, equal size. NOSE: Clear with pink turbinates. THROAT: No erythema or exudates. NECK: No masses, no JVD. CHEST: No chest wall deformity. LUNGS: Equal air entry with bilateral scattered rhonchi. CVS: S1 and S2 normal with no audible murmur, regular rhythm. ABDOMEN: No hepatosplenomegaly, normal bowel sounds, no guarding or rigidity. SPINE: No scoliosis or deformity SKIN: No rashes CENTRAL NERVOUS SYSTEM: No focal deficits, tone is normal in all 4 extremities. EXTREMITIES: There is no peripheral edema. No clubbing, no cyanosis. Peripheral pulses are intact. - Labs CBC & Chem 7: 08/10/22 06:19 08/10/22 06:19 Labs: Abnormal Lab Results - Last 24 Hours (Table) 08/10/22 08/10/22 Range/Units 06:19 06:19 WBC 17.11 H (4.50-10.00) X 10*3/uL RBC 3.92 L (4.40-5.60) X 10*6/uL Hgb 12.0 L (13.0-17.0) g/dL Hct 37.3 L (39.6-50.0) % Immature Gran # 0.15 H (0.00-0.04) X 10*3/uL Neutrophils # 15.34 H (1.80-7.70) X 10*3/uL Lymphocytes # 0.81 L (0.90-5.00) X 10*3/uL Eosinophils # 0 L (0.04-0.35) X 10*3/uL Carbon Dioxide 30.2 H (20.0-27.5) mmol/L BUN/Creatinine Ratio 24.45 H (12.00-20.00) Ratio Glucose 192 H (70-110) mg/dL Microbiology - Last 24 Hours (Table) 08/09/22 11:30 Gram Stain - Preliminary Sputum Sputum Culture - Preliminary 08/08/22 16:45 Blood Culture - Preliminary Blood No Growth after 24 hours 08/08/22 17:00 Blood Culture - Preliminary Blood No Growth after 24 hours Assessment and Plan Assessment: COPD exacerbation, complicated by possible right-sided pneumonia, and/or right hilar mass/adenopathy History of 48 years of tobacco use. History of hypertension. History of hyperlipidemia. History of abdominal aneurysm. Prior history of colectomy. Plan: The patient was seen and evaluated Plan is for bronchoscopy with BAL today Continue the current treatment plan Titrate the FiO2 as tolerated we will continue to follow I have personally seen and examined the patient, performed the documentation and the assessment and plan as written. Number of minutes spent on the visit: 10.
--- NOTE | 2022-08-10 13:26 | P.PN ---
Subjective Progress Note Date: 08/10/22 Pt is now able to produce sputum and reports his breathing has improved. Plan is for bronchoscopy today. Gen: awake, alert HEENT: normocephalic, atraumatic, good hearing acuity, moist mucous membranes Resp: Impaired air exchange, symmetric chest expansion, diffuse across all lung alejandro CVS: good distal perfusion x 4, GI: soft, NTTP, ND : no SPT, no CVAT, araujo catheter not present MSK: no pitting edema, no clubbing Neuro: non-focal, moving all extremities Psych: cooperative, euthymic mood Assessment/plan: Bronchitis Acute hypoxic respiratory failure Probable COPD exacerbation - Rocephin and Zithromax - Steroid burst and taper - Check sputum culture - Check pro calcitonin = 0.14 - Check COVID-19 PCR - Wean O2 as able -Consult pulmonary -plan for bronchoscopy with BAL on 08/10 -Patient will likely need repeat imaging after course of antibiotics -He does have a history of prostate cancer treated with radiation beads as well as a significant smoking history. Aortic aneurysm -Patient will like to follow-up with his as to whether he has a history of an abdominal or thoracic aortic aneurysm -We discussed that he will need close outpatient follow-up with his primary care physician to ensure that this is not growing or changing HTN -Resume home lisinopril, metoprolol, triamterene hydrochlorothiazide -Follow blood pressures HLD -Statin Surrogate decision-maker: CODE STATUS:Full, no prolonged mechanical ventilation DVT prophylaxis: Lovenox Anticipated discharge date: in 2-[address]: home Objective - Vital Signs Vital signs: Vital Signs Temp 97.8 F 08/10/22 08:00 Pulse 88 08/10/22 11:15 Resp 16 08/10/22 08:00 BP 167/79 08/10/22 08:00 Pulse Ox 98 08/10/22 08:00 FiO2 Intake & Output 08/09/22 08/10/22 08/10/22 18:59 06:59 18:59 Intake Total 550 900 Balance 550 900 Intake: Intake, IV Titration 900 Amount Sodium Chloride 0.9% 1, 900 000 ml @ 75 mls/hr IV . [id number] SOFI Rx#:[id number] Oral 550 Other: # Voids 2 3 - Labs CBC & Chem 7: 08/10/22 06:19 08/10/22 06:19 Labs: Abnormal Lab Results - Last 24 Hours (Table) 08/10/22 08/10/22 Range/Units 06:19 06:19 WBC 17.11 H (4.50-10.00) X 10*3/uL RBC 3.92 L (4.40-5.60) X 10*6/uL Hgb 12.0 L (13.0-17.0) g/dL Hct 37.3 L (39.6-50.0) % Immature Gran # 0.15 H (0.00-0.04) X 10*3/uL Neutrophils # 15.34 H (1.80-7.70) X 10*3/uL Lymphocytes # 0.81 L (0.90-5.00) X 10*3/uL Eosinophils # 0 L (0.04-0.35) X 10*3/uL Carbon Dioxide 30.2 H (20.0-27.5) mmol/L BUN/Creatinine Ratio 24.45 H (12.00-20.00) Ratio Glucose 192 H (70-110) mg/dL Microbiology - Last 24 Hours (Table) 08/09/22 11:30 Gram Stain - Preliminary Sputum Sputum Culture - Preliminary 08/08/22 16:45 Blood Culture - Preliminary Blood No Growth after 24 hours 08/08/22 17:00 Blood Culture - Preliminary Blood No Growth after 24 hours
[2022-08-10] MEDS ORDERED: MIDAZOLAM 2 MG/2 ML VIAL ONE (14:29)
[2022-08-10] MEDS ORDERED: fentaNYL (PF) 50 MCG/ML 2 ML AMP ONE (14:29)
[2022-08-10] MEDS ORDERED: PROPOFOL 10 MG/ML 20 ML VIAL IV ONE (14:29)
[2022-08-10] MEDS ORDERED: KETAMINE 10 MG/ML 20 ML VIAL ONE (14:29)
[2022-08-10] MEDS ORDERED: LACTATED RINGERS 1,000 ML IV ONE (14:36)
[2022-08-10] MEDS: AZITHROMYCIN 500 MG TAB PO SCH (17:34)
[2022-08-10 21:08] VITALS: RESP 18
--- NOTE | 2022-08-10 23:00 | PCN ---
PROCEDURE NOTE PULMONARY/CRITICAL CARE PROCEDURE: PRE-PROCEDURE DIAGNOSES: 1. Chronic obstructive pulmonary disease exacerbation. 2. Pneumonia. 3. Retained secretions. POST PROCEDURE DIAGNOSES: 1. Chronic obstructive pulmonary disease exacerbation. 2. Pneumonia. 3. Retained secretions. PROCEDURE: Bronchoscopy, airway examination, therapeutic lavage, BAL, right middle lobe. OPERATORS: Dr. Arana and Dr. Fletcher. ANESTHESIA: General anesthesia. The patient's procedure took place in room #1 [facility]. DESCRIPTION OF PROCEDURE: There was informed consent and universal timeout. After the patient was adequately sedated and being fully monitored, the bronchoscope was inserted through the right nostril. It passed through the right nasopharynx into the oropharynx. The hypopharynx was identified and topicalized. The glottic opening was evaluated. There was a small polyp noted on the posterior aspect of the left vocal cord. The anterior commissure, true cords, false cords, arytenoids, piriform sinuses, right and left valleculae and epiglottis otherwise appeared normal. Next, after topicalization, bronchoscope was pushed through the glottic opening into the trachea. There were thick secretions noted throughout the trachea. They were suctioned. The tracheal xiao was sharp. The right and left mainstem were topicalized. The right upper lobe and its 3 segments, right middle lobe and its 2 segments, right lower lobe and its 5 segments, left upper lobe proper and its 2 segments, lingula and its 2 segments, and left lower lobe and its 4 segments all had similar findings of diffuse severe erythema and hyperemia of the airways. There was vascular engorgement. The mucosa was very friable and bled very easily. Secretions were throughout. They were thick and viscid. They were suctioned with some difficulty. Saline was used to suction the secretions. Next the bronchoscope was wedged into the right middle lobe. A formal BAL took place. More than 30 mL of bloody fluid was recovered. It will be sent to the laboratory for analysis. The patient tolerated the procedure well. The patient will be recovered and taken back to his room. MMZORAIDAL / FEIN: [id number] /
[2022-08-11] MEDS: SODIUM CHLORIDE 0.9% 1,000 ML IV SCH (01:49)
[2022-08-11] MEDS: guaiFENesin-DM 100-10MG/5ML 10 ML CUP PO PRN (04:38)
[2022-08-11] MEDS: methylPREDNISolone SOD SUCCI 125 MG/2 ML VIAL IV SCH ×2 (05:29→11:56)
[2022-08-11 07:54] VITALS: BP 189/95; TEMP 97.8
[2022-08-11] MEDS: lisinopriL 20 MG TAB PO SCH (07:54)
[2022-08-11] MEDS: ATORVASTATIN 40 MG TAB PO SCH (07:54)
[2022-08-11] MEDS: METOPROLOL TARTRATE 50 MG TAB PO SCH (07:55)
[2022-08-11] MEDS: CYANOCOBALAMIN 500 MCG TAB PO SCH (07:55)
[2022-08-11] MEDS: PANTOPRAZOLE 40 MG TABLET PO SCH (07:55)
[2022-08-11] MEDS: ENOXAPARIN 40 MG/0.4 ML SYRINGE SQ SCH (07:56)
[2022-08-11] MEDS: TRIAMTERENE-HCTZ 37.5-25MG 1 EACH CAP PO SCH (07:56)
[2022-08-11] MEDS: ACETYLCYSTEINE 800 MG/4 ML VIAL INHALATION SCH ×2 (08:55→11:55)
[2022-08-11] MEDS: SYMBICORT 160-4.5 MCG INHALER INHALATION SCH (08:56)
[2022-08-11] MEDS: IPRATROPIUM-ALBUTEROL 3 ML NEB INHALATION SCH ×2 (08:56→11:56)
--- NOTE | 2022-08-11 10:18 | P.DS ---
Providers Date of admission: 08/08/22 15:13 Expected date of discharge: 08/11/22 Attending physician: Chelsea Ahumada DO Consults: 08/08/22 19:05 Consult Physician Routine Consulting Provider: Carlos Arana Reason/Comments: Bronchitis, possible pulmonary mass Do you want consulting provider notified?: Yes Primary care physician: Physician Nonstaff Hospital Course: Acute Bacterial Bronchitis Acute hypoxic respiratory failure Acute COPD exacerbation Aortic aneurysm HTN HLD Patient is an 82-year-old male with hypertension, dyslipidemia, abdominal aortic aneurysm presented to the ER with complaints of cough and shortness of breath 16 days. On arrival he was hypoxic at 85% on room air. Laboratory analysis showed white blood cell count 11.2, hemoglobin 12.9, d-dimer 2.64, and BUN 25. COVID-19 and influenza testing were negative. He underwent a chest x-ray which showed right mid lung and mid bibasilar infiltrates. CTA of the chest was completed and did not show any evidence of pulmonary embolism. However hilar adenopathy or soft tissue mass was demonstrated. He was found having an ascending thoracic aortic aneurysm of 4.2 cm. In the ER he was given a dose of Solu-Medrol, bronchodilators, Rocephin, and Zithromax. Arrangement were made for admission. Patient was treated for COPD exacerbation as well as pneumonia, pulmonary medicine was consulted. Pulmonology recommended patient undergo bronchoscopy which was completed on 08/10. Results showed that he had hyperemia and friable mucosa with areas of thick secretions as well as bleeding. These areas were suctioned. Following this procedure, patient was feeling significantly better and felt he was able to breathe like normal. However, he was noted to be 86% on room air at rest as well as on ambulation. He required 2 L nasal cannula to sustain above 88% both at rest and while walking. He was subsequently discharged home with home oxygen as well as steroid and antibiotics. He'll follow up with primary care as well as pulmonology. I spent 38 minutes coordinating this discharge, discharge date 08/11. Gen: awake, alert HEENT: normocephalic, atraumatic, good hearing acuity, moist mucous membranes Resp: Impaired air exchange, symmetric chest expansion, diffuse across all lung alejandro CVS: good distal perfusion x 4, GI: soft, NTTP, ND : no SPT, no CVAT, araujo catheter not present MSK: no pitting edema, no clubbing Neuro: non-focal, moving all extremities Psych: cooperative, euthymic mood Patient Condition at Discharge: Good Plan - Discharge Summary New Discharge Prescriptions: New predniSONE [Deltasone] 40 mg PO DAILY #4 tab Azithromycin [Zithromax] 500 mg PO DAILY 4 Days #4 tab Cefdinir [Omnicef] 300 mg PO Q12HR #8 capsule Budesonide-Formot 160-4.5 Mcg [Symbicort 160-4.5 Mcg Inhaler] 2 puff INHALATION RT-BID #1 each Acetaminophen Tab [Tylenol] 650 mg PO Q6HR PRN tab PRN Reason: Mild Pain Or Fever > 100.5 Continue guaiFENesin-DM 600/30MG [Mucinex Dm] 1 tab PO Q12HR PRN PRN Reason: Cold Symptoms lisinopriL 40 mg PO DAILY Metoprolol Tartrate [Lopressor] 50 mg PO BID Atorvastatin Calcium 40 mg PO DAILY Esomeprazole Magnesium [NexIUM 24Hr] 20 mg PO DAILY Cyanocobalamin (Vitamin B-12) [Vitamin B-12] 1,000 mcg PO DAILY Triamterene/Hydrochlorothiazid [Triamterene-Hctz 37.5-25 mg Cp] 1 cap PO DAILY Pseudoephedrine/Chlorpheniramie 60mg/4mg 1 tab PO Q4-6H PRN MDD 4 TABLETS PRN Reason: Cold Symptoms [place]-3/Dha/Epa/Fish Oil [Fish Oil 1,000 mg Softgel] 1 cap PO DAILY Glucosamine/Chondr Ho A Sod [Osteo Bi-Flex Caplet] 2 tab PO DAILY Discharge Medication List Atorvastatin Calcium 40 mg PO DAILY 08/08/22 [History] Cyanocobalamin (Vitamin B-12) [Vitamin B-12] 1,000 mcg PO DAILY 08/08/22 [History] Esomeprazole Magnesium [NexIUM 24Hr] 20 mg PO DAILY 08/08/22 [History] Glucosamine/Chondr Ho A Sod [Osteo Bi-Flex Caplet] 2 tab PO DAILY 08/08/22 [History] Metoprolol Tartrate [Lopressor] 50 mg PO BID 08/08/22 [History] [place]-3/Dha/Epa/Fish Oil [Fish Oil 1,000 mg Softgel] 1 cap PO DAILY 08/08/22 [History] Pseudoephedrine/Chlorpheniramie 60mg/4mg 1 tab PO Q4-6H PRN MDD 4 TABLETS 08/08/22 [History] Triamterene/Hydrochlorothiazid [Triamterene-Hctz 37.5-25 mg Cp] 1 cap PO DAILY 08/08/22 [History] guaiFENesin-DM 600/30MG [Mucinex Dm] 1 tab PO Q12HR PRN 08/08/22 [History] lisinopriL 40 mg PO DAILY 08/08/22 [History] Acetaminophen Tab [Tylenol] 650 mg PO Q6HR PRN tab 08/11/22 [Rx] Azithromycin [Zithromax] 500 mg PO DAILY 4 Days #4 tab 08/11/22 [Rx] Budesonide-Formot 160-4.5 Mcg [Symbicort 160-4.5 Mcg Inhaler] 2 puff INHALATION RT-BID #1 each 08/11/22 [Rx] Cefdinir [Omnicef] 300 mg PO Q12HR #8 capsule 08/11/22 [Rx] predniSONE [Deltasone] 40 mg PO DAILY #4 tab 08/11/22 [Rx] Follow up Appointment(s)/Referral(s): Carlos Arana DO [Doctor of Osteopathic Medicine] - 1 Week Nonstaff,Physician [Primary Care Provider] - 1-2 days Discharge Disposition: HOME SELF-CARE
--- NOTE | 2022-08-11 11:59 | P.PN ---
Subjective Progress Note Date: 08/11/22 82-year-old male presents to the emergency department on August 08, complaining of shortness of breath, and a severe cough. The patient states that he has not been feeling well for about 16 days. The cough is productive of occasional yellow/downs phlegm. He denies any fever or chills. He states that his cough is worse when he lays flat. He denies any chest pain or chest discomfort. He is a long-standing history of severe and significant tobacco use, nearly 50 years. He denied any fever or chills. He denied abdominal pain, or nausea, vomiting, or diarrhea. He denies all genitourinary complaints as well. His x-rays, and his CAT scans are reviewed. White count is 9.97 hemoglobin 12.6, hematocrit 40, and platelet count was 275,000. D-dimer was 2.64. Blood gases show pO2 of 119, pCO2 47, and pH is 7.39. Sodium, potassium, chloride, CO2, anion gap, BUN, and creatinine are all normal. Pro-calcitonin level is low at 0.14. Testing for influenza A, and influenza B, are negative. Testing for coronavirus 2 is negative. The patient's chest x-ray shows right midlung and mild bibasilar infiltrates, and or atelectasis. The patient CT angiogram was negative for pulmonary embolism. There is hilar adenopathy or soft tissue mass, measuring 2.2 cm. This could be reactive adenopathy, or something more ominous. The patient is on updrafts with albuterol sulfate and ipratropium bromide, antibiotics in the form of azithromycin and ceftriaxone, Solu-Medrol, and Symbicort. The patient is seen today 08/10/2022 in follow-up on the regular medical floor. He is doing a bit better today. Less cough and congestion. Left shortness of breath. Still not quite back to his baseline. Still requiring 3 L nasal cannula to maintain O2 saturations in the 90s. He's been afebrile. Hemodynami rosanna stable. Blood cultures reveal no growth. Sputum culture pending. White count 17.1. Hemoglobin 12.0. Sodium 142. Potassium 5.4. BUN 27. Creatinine 1.1. Glucose 192. Continued on Symbicort, DuoNeb inhalations, IV Solu-Medrol. Antibiotics in the form of ceftriaxone. Lovenox for DVT prophylaxis. The patient is seen today 08/11/2022 in follow-up on the regular medical floor. He is currently sitting up in bed. Awake and alert in no acute distress. He is feeling quite a bit better today compared to yesterday. He did undergo bronchoscopy with BAL. Cultures pending. He is continued on Symbicort, DuoNeb inhalations, IV Solu-Medrol. Antibiotics in the form of ceftriaxone. Continue Robitussin and Tessalon Perles. Continues with a dry nonproductive cough currently. Cultures revealed no growth. Sputum culture revealed no growth. He is anxious to go home. He does desaturate to 86% on room air. Maintaining in the 90s on 2 L/m per nasal cannula Objective - Vital Signs Vital signs: Vital Signs Temp 97.8 F 08/11/22 07:50 Pulse 91 08/11/22 09:14 Resp 18 08/11/22 08:00 BP 189/95 08/11/22 07:50 Pulse Ox 86 L 08/11/22 08:57 FiO2 Intake & Output 08/10/22 08/11/22 08/11/22 18:59 06:59 18:59 Intake Total 200 480 Balance 200 480 Intake: IV 200 Oral 480 Other: # Voids 3 2 - Exam GENERAL EXAM: Alert, very pleasant 82-year-old gentleman, on 2 L nasal cannula, comfortable in no apparent distress. HEAD: Normocephalic. EYES: Normal reaction of pupils, equal size. NOSE: Clear with pink turbinates. THROAT: No erythema or exudates. NECK: No masses, no JVD. CHEST: No chest wall deformity. LUNGS: Equal air entry with bilateral scattered rhonchi. CVS: S1 and S2 normal with no audible murmur, regular rhythm. ABDOMEN: No hepatosplenomegaly, normal bowel sounds, no guarding or rigidity. SPINE: No scoliosis or deformity SKIN: No rashes CENTRAL NERVOUS SYSTEM: No focal deficits, tone is normal in all 4 extremities. EXTREMITIES: There is no peripheral edema. No clubbing, no cyanosis. Peripheral pulses are intact. - Labs CBC & Chem 7: 08/10/22 06:19 08/10/22 06:19 Labs: Microbiology - Last 24 Hours (Table) 08/09/22 11:30 Gram Stain - Final Sputum Sputum Culture - Final 08/08/22 16:45 Blood Culture - Preliminary Blood No Growth after 48 hours 08/08/22 17:00 Blood Culture - Preliminary Blood No Growth after 48 hours Assessment and Plan Assessment: COPD exacerbation, complicated by possible right-sided pneumonia, and/or right hilar mass/adenopathy. He did undergo bronchoscopy with BAL 08/10/2022. No significant findings other than mucus and erythema within the bronchial airways cultures pending, cytology pending. History of 48 years of tobacco use. History of hypertension. History of hyperlipidemia. History of abdominal aneurysm. Prior history of colectomy. Plan: The patient was seen and evaluated Occasions and labs reviewed Bronchoscopy cultures and cytology pending Sputum culture had revealed no growth. Blood cultures no growth. He does desaturate to 86% on room air with activity Plan is for discharge home today with home oxygen Complete a course of antibiotics Complete a prednisone taper starting at 40 mg daily for 4 days Follow-up in our office in 1 week I have personally seen and examined the patient, performed the documentation and the assessment and plan as written. Number of minutes spent on the visit: 10.
[2022-08-11 12:17] VITALS: PULSE 78
[2022-08-13 23:59] LABS: Appearance,BF Grossly Bloody
== END 2022-08-11 14:06 | disposition home or self-care (01) | DRG 193 ==
LOC: EC 10:57 → 4SSUR 15:13
PROVIDERS: ADMIT Internal Medicine; ATTEND Internal Medicine
PROC: 0BJ08ZZ Inspection of Tracheobronchial Tree, Via Natural or Artificial Opening Endoscopic (ICD-10-PCS; principal; 2022-08-10 07:30)
PROC: 0B9D8ZZ Drainage of Right Middle Lung Lobe, Via Natural or Artificial Opening Endoscopic (ICD-10-PCS; principal; 2022-08-10 07:30)
DX: J18.9 Pneumonia, unspecified organism (principal); J96.01 Acute respiratory failure with hypoxia; J44.1 Chronic obstructive pulmonary disease with (acute) exacerbation; J98.11 Atelectasis; J44.0 Chronic obstructive pulmonary disease with (acute) lower respiratory infection; I71.20 Thoracic aortic aneurysm, without rupture, unspecified; J20.9 Acute bronchitis, unspecified; R59.0 Localized enlarged lymph nodes; E78.5 Hyperlipidemia, unspecified; I10 Essential (primary) hypertension; R13.10 Dysphagia, unspecified; Z20.822 Contact with and (suspected) exposure to COVID-19; Z79.899 Other long term (current) drug therapy; Z85.46 Personal history of malignant neoplasm of prostate; Z87.891 Personal history of nicotine dependence; Z90.49 Acquired absence of other specified parts of digestive tract; Z92.3 Personal history of irradiation; Z28.311 Partially vaccinated for COVID-19
CPT/HCPCS: 31624; 36415; 36600; 71046; 71275; 80048; 80053; 82805; 83605; 83735; 83880; 84145; 84484; 85025; 85027; 85379; 85610; 85730; 87040; 87070; 87102; 87116; 87205; 87206; 87252; 87502; 87635; 88108; 88305; 89050; 93005; 94640; 94667; 94760; 96374; 99285

== ENCOUNTER → 2022-08-27 | Outpatient (CLI) | payer MEDICARE ==
--- NOTE | 2022-08-27 14:54 | CT ---
EXAMINATION TYPE: CT chest w con DATE OF EXAM: 08/27/2022 COMPARISON: 08/08/2022 HISTORY: Enlarged lymph nodes, Abnormal findings diagnostic imaging CT DLP: 490.70 mGycm Automated exposure control for dose reduction was used. CONTRAST: CT scan of the chest is performed with IV Contrast, patient injected with 70 mL of Isovue 300. FINDINGS: LUNGS: Nodular infiltrate right middle lobe lateral segment and right lower lobe may reflect acute in fectious process. Correlate clinically. Mild right basilar atelectasis and small effusion. Hyperinfla tion compatible with COPD. There is no pleural effusion or pneumothorax seen. The tracheobronchial t ree is patent. MEDIASTINUM: There are no greater than 1 cm hilar or mediastinal lymph nodes. No pericardial effusi on is seen. Aneurysmal dilatation of the ascending thoracic aorta at 4.5 cm AP dimension. Ascending t horacic aorta is also aneurysmal at 3.5 cm dictation noted. There is prominence of the pulmonary romario ry. Consider pulmonary arterial hypertension. Right hilar lymph node mildly enlarged at 1.4 cm. No di stinct mass noted. The heart is not enlarged. UPPER ABDOMEN: No significant abnormality appreciated. OTHER: No additional significant abnormality is seen. IMPRESSION: 1.Nodular infiltrate right middle lobe lateral segment and right lower lobe may reflect acute infecti ous process. Correlate clinically. Short-term follow-up study recommended in 4-6 weeks. 2. Aneurysmal dilatation of the thoracic aorta. 3. Right hilar mildly enlarged lymph node. 4. Large left renal cyst.
== END | disposition home or self-care (01) ==
LOC: RADCTMAIN 13:11
PROVIDERS: ATTEND Internal Medicine Critical Care Medicine
DX: I71.23 Aneurysm of the descending thoracic aorta, without rupture (principal); N28.1 Cyst of kidney, acquired; R91.8 Other nonspecific abnormal finding of lung field; R59.0 Localized enlarged lymph nodes
CPT/HCPCS: 82565; 84520; 71260; 36415; Q9967